=== PATIENT | male | born 1990 | race Caucasian/White ===

== ENCOUNTER 2023-10-23 04:10 | Emergency (ER) | payer MEDICAID, SELFPAY ==
[2023-10-23 04:23] VITALS: BP 120/94; PULSE 87; RESP 16; TEMP 36.6; O2SAT 98; BMI 21.5
--- NOTE | 2023-10-23 04:40 | XR_ITS ---
Patient: IZABELA CARTER Facility:?[facility] Patient ID:?[id number] Site Patient ID:?[id number]. Site :?[id number] Study:?XRay-Extremity Right GREAT TOE-10/23/2023 5:05:27 AM Ordering Physician:GARFIELD Final Report: Indication: HAMMER INJURY Technique: Right great toe, 3 views. Comparison: None. Findings: Bones: Alignment is normal. No fractures or bone lesions. Joint spaces: Unremarkable. Soft tissues: No significant soft tissue swelling. Impression: No evidence of fracture. Dictated by Tristan Melgar MD @ 10/23/2023 5:43:11 AM Signed by:?Tristan Melgar MD @10/23/2023 5:43:11 AM (Electronic Signature)
--- NOTE | 2023-10-23 04:44 | ED_ITS ---
HPI - General Adult General Chief complaint: Extremity Pain/Injury, Lower Stated complaint: dropped hammer on right big toe Time Seen by Provider: 10/23/23 04:22 Source: patient Mode of arrival: ambulatory Limitations: no limitations History of Present Illness HPI narrative: 33-year-old male presents the emergency department in the wee hours, 5 hours after he dropped a hammer on to his right great toe. Had immediate pain, tried taking 400 mg of ibuprofen a couple of hours later with no significant improvement. Ice help temporarily. He can walk and bear weight, notes pain at the interphalangeal joint mainly. No pain in the rest of the foot. No other areas affected. Does have a subungual hematoma, did not attempt to drain. No history of immunocompromise status, vascular disease or recent infection. No other injuries. States the past medical history is notable for ADHD. Only home medication is Adderall. Allergy to penicillin. ROS notable for the musculoskeletal injury as stated above, ROS is otherwise negative for other generalized, musculoskeletal, neurological or skin changes. Related Data Home Medications Medication Instructions Recorded Confirmed dextroamphetamine-amphetamine 10 1 tab PO DAILY PRN 10/23/23 10/23/23 mg tablet dextroamphetamine-amphetamine ER 1 cap PO DAILY 10/23/23 10/23/23 25 mg 24hr capsule,extend release Allergies Allergy/AdvReac Type Severity Reaction Status Date / Time No Known Drug Allergies Allergy Verified 10/23/23 04:29 Exam Const: Vital Signs, click to edit/add: Vital Signs - 24 hr 10/23/23 04:23 Temperature 97.8 F Pulse Rate [Pulse Oximeter] 87 Respiratory Rate 16 Blood Pressure [Ri ght Upper Arm] 120/94 H Pulse Oximetry 98 Oxygen Delivery Me thod Room Air Documenting provider has reviewed patient's vital signs: yes General appearance: cooperative and well kempt HENMT: Common normals: normocephalic Head and scalp: normocephalic Face and sinus: normal facial exam Eye: General eye: normal appearance of both eyes Neck & C-Spine: General: normal visual inspection Resp: Common normals: normal respiratory effort Effort & inspection: able to speak in complete sentences Extremity: Other: Right foot and ankle examined. Right ankle has normal range of motion, normal visual inspection, no bony deformities. Right foot shows mild swelling at the 1st interphalangeal joint on the dorsal side of the foot only. Small subungual hematoma noted. Mild tenderness to palpation of MTP 1st joint and more so the interphalangeal joint. He can bend and flex. There is no gross deformity. No broken skin. Neuro: Motor exam: no movement abnormalities noted Psych: Appearance: well kempt Mood and affect: euthymic mood Insight: insight good Judgement: judgment good Skin: Common normals: no rashes or lesions noted General skin exam: no rashes or lesions noted Course Course ED Course: Right great toe injury from hammer falling on foot, subungual hematoma noted, possible fracture. No signs of open fracture. Recommend x-ray. If negative for fracture, recommend decompression of subungual hematoma. Will treat with 2 Vicodin while we await x-ray. The ED is quite busy right now, may take a couple of hours. Reevaluation(s) Time of Reevaluation #1: 05:57 Reevaluation #1: Counseled patient on normal x-ray. Recommended drainage of subungual hematoma. Procedure discussed, verbal consent obtained. Area was cleansed with alcohol wipe over nailbed of right great toe. Hematoma identified. Bovie used to cauterize 1 mm incision directly to center of hematoma in nail. This drained about 5 mL of dark red blood and patient had significant relief in pain. Covered with gauze, Band-Aid and care discussed. Keep current management placed for the next 24 hours. After that, may remove and shower as usual. Okay to return to work and all typical duties today. May have some mild tenderness. If still bothersome in 2 weeks, office visit follow- up for advanced imaging. Okay to use Tylenol and/or ibuprofen as needed for pain. Vital Signs Vital signs: Initial Vital Signs Temperature 97.8 F 10/23/23 04:23 Temperature Source Temporal Artery Scan 10/23/23 04:23 Pulse Rate 87 10/23/23 04:23 Respiratory Rate 16 10/23/23 04:23 Blood Pressure 120/94 H 10/23/23 04:23 Blood Pressure Mean 102 10/23/23 04:23 Blood Pressure Position Sitting 10/23/23 04:23 Pulse Oximetry 98 10/23/23 04:23 Oxygen Delivery Method Room Air 10/23/23 04:23 Vital Signs Temperature 97.8 F 10/23/23 04:23 Pulse Rate 87 10/23/23 04:23 Respiratory Rate 16 10/23/23 04:23 Blood Pressure 120/94 H 10/23/23 04:23 Pulse Oximetry 98 10/23/23 04:23 Oxygen Delivery Method Room Air 10/23/23 04:23 Temperature 97.8 F 10/23/23 04:23 Pulse Rate 87 10/23/23 04:23 Respiratory Rate 16 10/23/23 04:23 Blood Pressure 120/94 H 10/23/23 04:23 Pulse Oximetry 98 10/23/23 04:23 Oxygen Delivery Method Room Air 10/23/23 04:23 Medications Administered Medications: Generic Name Dose Route Start Last Admin Trade Name Freq PRN Reason Stop Dose Admin Hydrocodone Bitart/Acetaminophen 2 tab 10/23/23 04:40 10/23/23 05:53 Hydrocodone-Acetamin 5-325 Mg 1 Tab PO 10/23/23 04:41 2 tab ONCE ONE Administration Medical Decision Making Imaging Data Toe x-ray: Attestation: I have reviewed the pertinent imaging results. My impression: No fracture Radiologist's impression: Impression: No evidence of fracture. Discharge Plan Discharge Clinical Impression: Subungual hematoma of foot Patient Disposition: Home w/ Parent or Adult Condition: Improved Instructions: Foot Contusion (ED) Additional Instructions: As we discussed, there are no signs of fracture of the toe on x-ray. You did have a hematoma underneath the nail which we drained in the emergency department. Try to leave the current dressing in place for 24 hours, then you may wash with soap, reapply a small Band-Aid. You may continue to have drainage for the next few hours, that was the purpose of putting the hole into the nail. This will reduce the chance of the nail falling off, but it may still do so. It is okay to use Tylenol 1000 mg every 6 hours as needed for pain and or ibuprofen 600 mg every 6 hours for pain. You may alternate between the 2 for even better pain control. If things are still very painful in 2 weeks, he should make a follow-up appointment with her primary care provider to consider additional testing. It is okay to return to work and all typical duties today. Activity Level: No Restrictions Discharge Diet: Regular Prescriptions: No Action dextroamphetamine-amphetamine 10 mg tablet 1 tab PO DAILY PRN dextroamphetamine-amphetamine 25 mg capsule,extended release 24hr 1 cap PO DAILY Follow Up/Referrals: Provider,Not a Local [Primary Care Provider] - Stand Alone Forms: [facility] Info Instructions
[2023-10-23] MEDS: HYDROCODONE-ACETAMIN 5-325 MG 1 TAB 2 TAB PO (05:53)
== END 2023-10-23 06:14 | disposition home or self-care (01) ==
PROVIDERS: Emergency Provider Family Medicine
DX: S90.211A Contusion of right great toe with damage to nail, initial encounter (principal); W20.8XXA Other cause of strike by thrown, projected or falling object, initial encounter
CPT/HCPCS: 11740; 73660; 99283; A9270